=== PATIENT | male | born 1950 | race Caucasian/White ===

== ENCOUNTER 2022-11-02 10:18 | Emergency (ER) | payer OTHER ==
[~2022-11-02] VITALS: Ht 175.3 cm; Wt 73.5 kg
[2022-11-02] MEDS ORDERED: PEPCID AC20 MG PO (10:30)
[2022-11-02] MEDS ORDERED: LEVOTHYROXINE25 MCG PO (10:30)
[2022-11-02] MEDS ORDERED: MOLNUPIRAVIR (200 MG PO ×2 (12:46→12:49)
== END 2022-11-02 12:54 | disposition home or self-care (01) ==
LOC: ER 10:18
DX: U07.1 COVID-19 (principal)